=== PATIENT | female | born 1940 | race Two or more races ===

== ENCOUNTER → 2018-09-20 | Outpatient (CLI) | payer MEDICARE ==
[2016-04-28 08:30] VITALS: BP 102/50
[~2018-09-20] MED LIST: ASPI-482 PO; DILT120C80 PO; SIMV20TA3 PO
--- NOTE | 2018-09-20 10:01 | RAD ---
MRI Lumbar Spine without contrast History: Low back pain, left leg radiculopathy for 6 months Technique: Multiplanar, multi sequential noncontrast MR imaging was performed of the lumbar spine. Contrast: None Comparison: None Findings: Lumbar vertebral body stature is maintained. There is grade 1 anterior spondylolisthesis L5-S1. There is moderate to severe degenerative disc disease L5-S1, mild to moderate degenerative disc disease variably L3-4 and L4-5 and to lesser degree at L2-3. Conus terminates at the superior aspect of L2. There is bilobed or 2 adjacent likely Tarlov cysts on the right at S2, overall dimension about 3.5 cm CC by 2 cm AP. There is a smaller focus on the left at this level up to about 1.7 cm. There are also small cystic foci at multiple levels of the lumbar spine at the margins of the neural foramina more likely due to nerve root sleeve cysts. There is mild levoscoliosis centered about L2. There is small hemangioma of the T11 vertebral body. L1-L2: Spinal canal and neural foramina are adequate. There is mild buckling of the ligamentum flavum. L2-L3: There is mild buckling of the ligamentum flavum. Neural foramina and spinal canal are adequate. L3-L4: There is negligible disc osteophyte complex. Spinal canal is adequate. Neural foramina are overall adequate. L4-L5: There is negligible disc osteophyte complex and bulge. There is minimal buckling of the ligamentum flavum and right facet degenerative change. Spinal canal is overall adequate. Neural foramina are overall adequate. L5-S1: There is moderate to severe left and mild right facet degenerative change. There is mild buckling of the ligamentum flavum greater on the left. There is mild narrowing of the far left lateral recess from posteriorly. There is mild partial uncovering of the posterior aspect of the disc due to spondylolisthesis, also minimal disc osteophyte complex. There is mild narrowing of the right neural foramen, moderate to severe narrowing of the left neural foramen. Impression: 1. There is moderate to severe narrowing of the left L5-S1 neural foramen. There is no significant lumbar spinal stenosis. There is moderate to severe degenerative disc disease at L5-S1, also grade 1 anterior spondylolisthesis L5-S1 at which there is facet degenerative change. 2. 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 3. There is mild lumbar levoscoliosis. Electronically signed by: Lj Alicea MD (09/20/2018 9:57 AM) [id number]
== END | disposition home or self-care (01) ==
LOC: MRI 09:15
PROVIDERS: ATTEND Orthopaedic Surgery Sports Medicine
DX: M51.36 Other intervertebral disc degeneration, lumbar region (principal); M51.37 Other intervertebral disc degeneration, lumbosacral region; M48.07 Spinal stenosis, lumbosacral region; M43.17 Spondylolisthesis, lumbosacral region; M41.86 Other forms of scoliosis, lumbar region; D18.09 Hemangioma of other sites
CPT/HCPCS: 72148